=== PATIENT | female | born 1985 ===

== ENCOUNTER 2023-01-23 16:10 | Outpatient (CLI) | payer OTHER | END 2023-01-23 16:11 | disposition home or self-care (01) | LOC: LAB 16:10 | PROVIDERS: ATTEND General Practice | DX: J06.9 Acute upper respiratory infection, unspecified (principal) ==

== ENCOUNTER 2023-01-24 15:11 | Emergency (ER) | payer OTHER ==
[~2023-01-24] VITALS: Ht 160 cm; Wt 78.0 kg
== END 2023-01-24 20:37 | disposition home or self-care (01) ==
LOC: ER 15:11
DX: J98.01 Acute bronchospasm (principal); R05.9 Cough, unspecified

== ENCOUNTER 2023-07-19 20:08 | Emergency (ER) | payer OTHER ==
[~2023-07-19] VITALS: Ht 160 cm; Wt 77.1 kg
[2023-07-19 21:39] LABS: HEMATOCRIT 36.2 % (36.0-45.00); HEMOGLOBIN 12.7 g/dL (12.0-15.00); MEAN CELL VOLUME 81.1 fL (80.00-100.00); MEAN CORPUSCULAR HEMOGLOBIN 28.4 pg (27.00-32.0); MEAN CORPUSCULAR HGB CONC 35.1 g/dl (32.0-36.0); PLATELET COUNT 402 K/uL (150-450); RED BLOOD COUNT 4.47 M/uL (4.00-6.00); RED CELL DISTRIBUTION WIDTH 13.3 % (11.5-14.5)
[2023-07-19] MEDS ORDERED: DICLOFENAC SODI50 MG PO (22:19)
== END 2023-07-19 22:24 | disposition home or self-care (01) ==
LOC: ER 20:08
PROVIDERS: Nurse Practitioner Family
DX: R07.89 Other chest pain (principal); Z20.822 Contact with and (suspected) exposure to COVID-19